=== PATIENT | female | born 1930 | race Caucasian/White ===

== ENCOUNTER 2022-01-16 16:00 | Inpatient (IN) | payer OTHER ==
--- NOTE | 2022-01-16 16:33 | RAD REPORT ---
EXAM DESCRIPTION: CT - Ct Stroke Brain Wo Cont - 01/16/2022 4:12 pm CLINICAL HISTORY: Weakness COMPARISON: none TECHNIQUE: Computed axial tomography of the head was obtained. All CT scans are performed using dose optimization technique as appropriate and may include automated exposure control or mA/KV adjustment according to patient size. FINDINGS: An intracranial bleed is not seen . The ventricles are normal in caliber. No extra-axial fluid collection is noted. Mild low-density within periventricular, deep and subcortical white matter likely ischemic changes se condary to small vessel disease Fluid within the sinuses/ mastoids is not seen. IMPRESSION: No acute intracranial abnormality is seen. If patient's symptoms persist MRI of the bra in would be recommended. Jose G Koehler of the emergency room was notified at 4:06 p.m. January 16, 2022
[2022-01-16 16:36] LABS: Absolute Lymphocytes (CBC) 0.7 K/uL (0.7-4.9); Hematocrit 29.8 % (36.0-45.0); Lymphocytes % 11.1 % (15.3-44.8); MCV 108.1 fL (80-100); RBC Red Blood Cell Count 2.75 M/uL (3.86-4.86)
[2022-01-16 16:42] LABS: Protime INR 1.13
[2022-01-16 17:00] LABS: Magnesium 2.2 mg/dL (1.8-2.4); Troponin High Sensitivity 41.9 pg/mL (<58.9)
[2022-01-16 17:10] LABS: Blood Morphology Comment NOTED (NOT SEEN); Macrocytosis 1+; Platelet Estimate DECR; Polychromasia 1+; White Blood Cell Scan OK (OK)
--- NOTE | 2022-01-16 17:12 | RAD REPORT ---
EXAM DESCRIPTION: Slime Angio01/16/2022 4:51 pm CLINICAL HISTORY: Acute CVA COMPARISON: None TECHNIQUE: 50 cc Isovue 370 was administered intravenously. 3D MIP reconstruction performed All CT scans are performed using dose optimization technique as appropriate and may include automated exposure control or mA/KV adjustment according to patient size. FINDINGS: Calcified plaque right carotid bulb results in an approximately 55% stenosis. Mild calcified plaque common carotid, internal carotid and external carotid arteries. Vertebral arteries appear unremarkable. No dissection seen. IMPRESSION: Moderate calcified plaque right carotid bulb NASCET criteria used. Mild 0-49% stenosis Moderate 50-69% stenosis Severe 70-99% stenosis
--- NOTE | 2022-01-16 17:16 | RAD REPORT ---
EXAM DESCRIPTION: CTHead angio01/16/2022 4:50 pm CLINICAL HISTORY: Acute CVA COMPARISON: None TECHNIQUE: CT angiogram of the head was obtained. 3D MIPS reconstruction performed. All CT scans are performed using dose optimization technique as appropriate and may include automated exposure control or mA/KV adjustment according to patient size. FINDINGS: Mild calcified plaque distal internal carotid arteries bilaterally The basilar,, anterior cerebral, middle cerebral and posterior cerebral arteries do not demonstrate a significant abnormality An aneurysm is not seen A significant stenosis is not noted. IMPRESSION: No acute abnormality is displayed
--- NOTE | 2022-01-16 17:19 | RAD REPORT ---
EXAM DESCRIPTION: Kenn Single View01/16/2022 5:04 pm CLINICAL HISTORY: CVA COMPARISON: none FINDINGS: Mild bilateral interstitial lung opacities. The heart is mildly enlarged IMPRESSION: Mild bilateral interstitial lung opacities may represent mild interstitial pulmonary ollie ma or pneumonitis
--- NOTE | 2022-01-16 17:52 | ER ---
Nurse's Notes [facility] Name: Genesis Pedraza Age: 89 yrs Sex: Female : 1930 Arrival Date: 01/16/2022 Time: 16:04 Bed 19 Private MD: Diagnosis: Ischemic CVA;Weakness;Left sided weakness;Slurred speech Presentation: 01/16 15:54 Chief complaint: EMS states: L FACE DROOP, LEFT EXTREMITY WEAKNESS, START 1515. bp Coronavirus screen: At this time, the client does not indicate any symptoms associated with coronavirus-19. Ebola Screen: No symptoms or risks identified at this time. An acute neurological deficit is present. The charge nurse has been notified. The patient has been moved to a treatment area. The patients blood glucose was checked before arriving to the hospital and was found to be normal. Initial Sepsis Screen: Does the patient meet any 2 criteria? No. Patient's initial sepsis screen is negative. Does the patient have a suspected source of infection? No. Patient's initial sepsis screen is negative. Risk Assessment: Do you want to hurt yourself or someone else? Patient reports no desire to harm self or others. Onset of symptoms was January 16, 2022 at 15:15. 15:54 Method Of Arrival: EMS: [facility] bp 15:54 Acuity: ABDIFATAH 1 bp Triage Assessment: 15:54 The onset of the patients symptoms was January 16, 2022 at 15:15. General: Appears bp distressed, obese, Behavior is agitated, anxious. Pain: Denies pain. EENT: No deficits noted. Neuro: Reports weakness in left arm and left leg Denies. Cardiovascular: Rhythm is atrial fibrillation. Respiratory: No deficits noted. GI: No signs and/or symptoms were reported involving the gastrointestinal system. : No signs and/or symptoms were reported regarding the genitourinary system. Derm: Bruising that is on lateral aspect of right thigh and right quadriceps and left leg and left arm. Musculoskeletal: Reports weakness in left arm and left leg. 15:54 Injury Description: Laceration sustained to left knee is full thickness, 2.6 to 7.5 cm bp long, bleeding moderately, was sustained UNKNOWN moderate bleeding noted at this time. Stroke Activation: Symptom onset < 3 hours Physician: Stroke Attending; Name: ; Notified At: ; Arrived At: Physician: Chief Stroke Resident; Name: ; Notified At: ; Arrived At: Physician: Stroke Resident; Name: ; Notified At: ; Arrived At: Physician: ED Attending; Name: ; Notified At: ; Arrived At: Physician: ED Resident; Name: ; Notified At: ; Arrived At: Historical: - Allergies: 15:54 No Known Allergies; bp - Immunization history:: Adult Immunizations unknown. - Social history:: Smoking status: unknown. Screenin:54 Abuse screen: Denies threats or abuse. Denies injuries from another. Nutritional bp screening: No deficits noted. Tuberculosis screening: No symptoms or risk factors identified. Fall Risk Fall in past 12 months (25 points). Secondary diagnosis (15 points) impaired mobility, IV access (20 points). Ambulatory Aid- Crutches/Cane/Walker (15 pts). Gait- Weak (10 pts.). Mental Status- Overestimates/Forgets Limitations (15 pts.). Total Hinkle Fall Scale indicates High Risk Score (45 or more points). Fall prevention measures have been instituted. Side Rails Up X 2 Placed Close to Nursing Station Frequent Obs/Assessments Occuring Family Present and informed to notify staff if the need to leave the bedside As available patient and family educated on Fall Prevention Program and Strategies. Assessment: 15:54 VAN Scoring: Arm Drift: Patients demonstrates NO arm weakness. Patient is VAN Negative. bp The patient has not been NPO before screening. The patient is alert, and able to follow commands. The patient exhibits slurred or garbled speech. Provider notified of the indication for Speech Therapy consult. The patient is exhibiting difficulty speaking. The patient does not exhibit difficulty understanding words. The patient is able to swallow own secretions with no drooling or need for suction. NOT DONE NOT DONE The patient failed the bedside swallow screening. The patient will be kept NPO until cleared by Speech Therapy or Physician. Provider notified of bedside swallow screening results: Artie Wong DO. TNKase (Tenecteplase) Screening: Contraindications: Active peripheral bleeding/history of intracranial bleeding: Yes. 17:00 Reassessment: PT RETURNED FROM RADIOLOGY. bp 17:22 Reassessment: PER DR LOPEZ, PT CURRENT CO-MORBIDITIES AND WOUNDS MAKE HER A POOR bp CANDIDATE FOR TNKASE. SITUATION EXPLAINED TO FAMILY. PT CHOOSING TO DECLINE TNKASE ADMINISTRATION 2/2 ELEVATED RISK OF POOR OUTCOMES. 17:33 Reassessment: ATTENDING AT B/S. RISKS VS REWARD OR TNKASE EXPLAINED TO PT AND FAMILY bp WITH NEURO'S RECOMMENDATION. AFTER DISCUSSION, PT AND FAMILY OPT TO NOT USE THROMBOLYTICS DUE TO THE INCREASED RISK. 19:26 Reassessment: [id number] Enrique, ulises. vc1 Vital Signs: 15:54 BP 96 / 60; Pulse 110; Resp 20; Temp 98; Pulse Ox 95% on R/A; bp 17:00 BP 83 / 38; Pulse 60; Resp 11; Pulse Ox 100% ; bp 17:15 BP 97 / 52; Pulse 48; Resp 14; Pulse Ox 100% ; bp 22:00 Weight 72.57 kg; Height 5 ft. 3 in. (160.02 cm); vc1 22:00 Body Mass Index 28.34 (72.57 kg, 160.02 cm) vc1 NIH Stroke Scale Scores: 15:54 NIHSS Score: 13 ms3 17:27 NIHSS Score: 13 bp ED Course: 15:45 Inserted saline lock: 22 gauge in left forearm, using aseptic technique. Blood bp collected. 15:54 Arm band placed on. EKG completed in triage. Results shown to MD. bp 16:04 Patient arrived in ED. hb 16:11 Artie Wong DO is Attending Physician. ms3 16:13 CT Stroke Brain w/o Contrast In Process Unspecified. EDMS 16:22 Robin Corrales, FATOUMATA is Primary Nurse. bp 16:27 Triage completed. bp 16:40 Antipyretics given from triage as ordered by an ER provider. bp 16:52 CT Head Angio In Process Unspecified. EDMS 16:53 CT Neck Angio In Process Unspecified. EDMS 17:06 Stroke CXR 1 View In Process Unspecified. EDMS 17:51 Martin Woodard MD is Hospitalizing Provider. ms3 19:00 Patient has correct armband on for positive identification. Bed in low position. Call vc1 light in reach. Client placed on continuous cardiac and pulse oximetry monitoring. NIBP monitoring applied. 20:00 No provider procedures requiring assistance completed. Patient admitted, IV remains in vc1 place. 01/17 00:35 Primary Nurse role handed off by Robin Corrales, FATOUMATA vc1 00:35 Calcote, Mary, RN is Primary Nurse. vc1 16:43 Primary Nurse role handed off by Mary Friend RN vg1 16:43 Lala Fitzgerald, RN is Primary Nurse. vg1 Administered Medications: No medications were administered Medication: 01/16 17:01 VIS not applicable for this client. bp Point of Care Testing: Blood Glucose: 22:00 Blood Glucose: 128 mg/dL; vc1 Ranges: Outcome: 17:52 Decision to Hospitalize by Provider. ms3 22:00 Admitted to ER Hold. Please see [facility] for further documentation. vc1 22:00 Condition: good 22:00 Instructed on the need for admit. 01/17 22:15 Patient left the ED. bb NIH Stroke Scale - NIH Stroke Score Date: 01/16/2022 Time: 15:54 Total Score = 13 1a. Level of Consciousness (LOC) - 0(Alert) 1b. Level of Consciousness (LOC) (Month \T\ Age) - 0(Both) 1c. LOC Commands (Open \T\ Closes Eyes/Suede Brusher) - 0(Both) 2. Best Gaze (Lateral Gaze Paresis) - 0(Normal) 3. Visual Field Loss - 2(Complete hemianopia) 4. Facial Palsy - 2(Partial paralysis) 5a. Left Arm: Motor (10-second hold) - 2(Drift, some effort against gravity) 5b. Right Arm: Motor (10-second hold) - 0(No drift) 6a. Left Leg: Motor (5-second hold - always test supine) - 2(Drift, some effort against gravity) 6b. Right Leg: Motor (5-second hold - always test supine) - 0(No drift) 7. Limb Ataxia (finger/nose \T\ heel/newton - test with eyes open) - 1(Present in one limb) 8. Sensory Loss (pinprick arms/legs/face) - 2(Severe to total loss) 9. Best Language: Aphasia (description/naming/reading) - 0(No aphasia) 10. Dysarthria (speech clarity - read or repeat words) - 1(Mild to Moderate) 11. Extinction and Inattention (visual/tactile/auditory/spatial/personal) - 1(Present) Initials: ms3 NIH Stroke Scale - NIH Stroke Score Date: 01/16/2022 Time: 17:27 Total Score = 13 1a. Level of Consciousness (LOC) - 0(Alert) 1b. Level of Consciousness (LOC) (Month \T\ Age) - 0(Both) 1c. LOC Commands (Open \T\ Closes Eyes/Suede Brusher) - 0(Both) 2. Best Gaze (Lateral Gaze Paresis) - 0(Normal) 3. Visual Field Loss - 2(Complete hemianopia) 4. Facial Palsy - 2(Partial paralysis) 5a. Left Arm: Motor (10-second hold) - 0(No drift) 5b. Right Arm: Motor (10-second hold) - 2(Drift, some effort against gravity) 6a. Left Leg: Motor (5-second hold - always test supine) - 0(No drift) 6b. Right Leg: Motor (5-second hold - always test supine) - 2(Drift, some effort against gravity) 7. Limb Ataxia (finger/nose \T\ heel/newton - test with eyes open) - 1(Present in one limb) 8. Sensory Loss (pinprick arms/legs/face) - 1(Mild to moderate loss) 9. Best Language: Aphasia (description/naming/reading) - 1(Mild to moderate aphasia) 10. Dysarthria (speech clarity - read or repeat words) - 1(Mild to Moderate) 11. Extinction and Inattention (visual/tactile/auditory/spatial/personal) - 1(Present) Initials: bp Signatures: Dispatcher [employer] EDMS Amarilis Rivas RN Miladys Bazzi, RN RN Robin Dos Santos RN Lala Sanchez RN RN [email or web address] Artie Wong DO DO ms3 Mary Friend RN RN vc1 Corrections: (The following items were deleted from the chart) 01/16 16:30 15:50 Allergies: Tetanus Vaccines \T\ Toxoid; bp bp 16:31 15:50 Allergies: No Known Allergies; bp bp 17:10 15:54 Derm: No deficits noted. bp bp 17:11 15:54 The patient has not been NPO before screening. The patient is alert, and bp able to follow commands. The patient exhibits slurred or garbled speech. Provider notified of the indication for Speech Therapy consult. The patient failed the bedside swallow screening. The patient will be kept NPO until cleared by Speech Therapy or Physician. Provider notified of bedside swallow screening results: Artie Wong DO bp 17:13 15:54 Blood Glucose: Blood Glucose Qyckmql=122 mg/dL. bp bp 17:13 15:54 Blood Glucose: Blood Glucose Uphbykg=949 mg/dL. bp bp 17:13 15:54 Blood Glucose: Blood Glucose Kdfosna=891 mg/dL. bp bp 17:13 15:54 Blood Glucose: Blood Glucose Saqsuwa=038 mg/dL. bp bp 17:13 15:54 Blood Glucose: Blood Glucose Vsolchs=364 mg/dL. bp bp 17:13 15:54 Blood Glucose: Blood Glucose Csnvrzj=680 mg/dL. bp bp 17:13 15:54 Blood Glucose: Blood Glucose Xeisbqr=118 mg/dL. bp bp 17:13 15:54 Blood Glucose: Blood Glucose Xoieltv=574 mg/dL. bp bp 17:34 15:54 NIHSS Score: 11 bp bp
--- NOTE | 2022-01-16 17:52 | EDPHYS ---
Physician Documentation [facility] Name: Genesis Pedraza Age: 89 yrs Sex: Female : 1930 Arrival Date: 01/16/2022 Time: 16:04 Bed 19 Private MD: ED Physician Artie Wong HPI: 01/16 16:23 This 89 yrs old Female presents to ER via Unassigned with complaints of S/S of Possible ms3 Stroke. 16:23 The patient's problem is reported as a facial droop, on left, dysphasia, slurred ms3 speech, weakness, in the left upper extremity, in the left lower extremity, in the left side of face. Onset: The symptoms/episode began/occurred acutely, at 3:15 PM. Duration: The episode is continuous. Context: the episode(s) was witnessed, by family, son, occurred at home, Possible contributing factors include: Stopped Eliquis on Monday after a fall. The symptoms are alleviated by nothing. The symptoms are aggravated by nothing. Associated signs and symptoms: The patient has no apparent associated signs or symptoms. Severity of symptoms: At their worst the symptoms were severe in the emergency department the symptoms are unchanged. Historical: - Allergies: 15:54 No Known Allergies; bp - Immunization history:: Adult Immunizations unknown. - Social history:: Smoking status: unknown. ROS: 16:23 Constitutional: Negative for fever, and chills. Eyes: Negative for injury, pain, ms3 redness, and discharge, Cardiovascular: Negative for chest pain, and palpitations. Respiratory: Negative for shortness of breath, cough, wheezing, and pleuritic chest pain, Abdomen/GI: Negative for abdominal pain, nausea, vomiting, diarrhea, and constipation, MS/Extremity: Negative for injury and deformity, Skin: Negative for injury, rash, and discoloration. 16:23 Neuro: Positive for numbness, speech changes, weakness. 16:23 All other systems are negative. Exam: 16:23 Radiologist reports: negative ms3 16:23 Constitutional: This is a well developed, well nourished patient who is awake, alert, and in no acute distress. Head/Face: Normocephalic, atraumatic. Neck: Trachea midline, no cervical lymphadenopathy. Supple, full range of motion without nuchal rigidity, or vertebral point tenderness. No Meningismus. Chest/axilla: Normal chest wall appearance and motion. Nontender with no deformity. Cardiovascular: Regular rate and rhythm with a normal S1 and S2. No gallops, murmurs, or rubs. Normal PMI, no JVD. No pulse deficits. Respiratory: Lungs have equal breath sounds bilaterally, clear to auscultation and percussion. No rales, rhonchi or wheezes noted. No increased work of breathing, no retractions or nasal flaring. Abdomen/GI: Soft, non-tender, with normal bowel sounds. No distension or tympany. No guarding or rebound. No evidence of tenderness throughout. 16:23 ECG was reviewed by the Attending Physician. 16:23 Skin: Ecchymosis of left lower leg, ecchymosis of right lower leg, laceration with sutures left knee with bleeding- oozing, contusion to left shoulder. Vital Signs: 15:54 BP 96 / 60; Pulse 110; Resp 20; Temp 98; Pulse Ox 95% on R/A; bp 17:00 BP 83 / 38; Pulse 60; Resp 11; Pulse Ox 100% ; bp 17:15 BP 97 / 52; Pulse 48; Resp 14; Pulse Ox 100% ; bp 22:00 Weight 72.57 kg; Height 5 ft. 3 in. (160.02 cm); vc1 22:00 Body Mass Index 28.34 (72.57 kg, 160.02 cm) vc1 NIH Stroke Scale Scores: 15:54 NIHSS Score: 13 ms3 17:27 NIHSS Score: 13 bp MDM: 16:11 Patient medically screened. ms3 16:21 ED course: Discussed case with Dr Cox. Patient with NIH of 13. Patient is high ms3 risks for TNK complications 2/2 recent fall, laceration to left knee, ecchymosis of left shoulder, bilateral lower extremity ecchymosis.. 16:23 ED course: Discussed TNK risks vs benefits with patient, her son, and daughter in law. ms3 Decision made to hold TNK at this time 2/2 patient being high risk for bleeding complications 2/2 recent falls/ lacerations. 17:52 ED course: Discussed TNK risks and benefits after CTA head and neck with patient, her ms3 son, and daughter in law and patient does not wish to have TNK. 17:57 Data reviewed: vital signs, nurses notes, lab test result(s), EKG, radiologic studies, ms3 and as a result, I will admit patient. Data interpreted: gambling monitor: rate is 67 beats/min, rhythm is normal sinus rhythm, regular, with no ectopy. Counseling: I had a detailed discussion with the patient and/or guardian regarding: the historical points, exam findings, and any diagnostic results supporting the discharge/admit diagnosis, lab results, radiology results, the need for further work-up and treatment in the hospital. 01/16 16:18 Order name: Basic Metabolic Panel; Complete Time: 17:04 ms3 01/16 16:18 Order name: CBC with Diff; Complete Time: 17:15 ms3 01/16 16:18 Order name: High Sensitivity Troponin; Complete Time: 17:04 ms3 01/16 16:18 Order name: Magnesium; Complete Time: 17:04 nc3 01/16 16:18 Order name: Protime (+inr); Complete Time: 17:04 nc3 01/16 16:18 Order name: Ptt, Activated; Complete Time: 17:04 nc3 01/16 16:31 Order name: Glucose, Ancillary Testing; Complete Time: 17:04 EDMS 01/16 16:44 Order name: CBC Smear Scan; Complete Time: 17:15 EDMS 01/16 21:47 Order name: Glucose, Ancillary Testing; Complete Time: 21:54 EDMS 01/17 02:49 Order name: CBC with Automated Diff; Complete Time: 04:13 EDMS 01/17 03:31 Order name: Hemoglobin A1c; Complete Time: 04:13 MS 01/17 03:40 Order name: Sedimentation Rate, Westergren; Complete Time: 04:13 EDMS 01/17 03:43 Order name: Comprehensive Metabolic Panel; Complete Time: 04:13 MS 01/17 03:43 Order name: Phosphorus; Complete Time: 04:13 MS 01/16 16:06 Order name: CT Stroke Brain w/o Contrast; Complete Time: 17:04 [facility] 01/16 16:18 Order name: Stroke CXR 1 View; Complete Time: 17:39 ms3 01/16 16:20 Order name: CT Head Angio; Complete Time: 17:17 nc3 01/16 16:20 Order name: CT Neck Angio; Complete Time: 17:15 ms3 01/17 03:43 Order name: Lipid Profile; Complete Time: 04:13 EDMS 01/17 03:43 Order name: T4,Total; Complete Time: 04:13 EDMS 01/17 03:43 Order name: Magnesium; Complete Time: 04:13 EDMS 01/17 03:43 Order name: Thyroid Stimulating Hormone; Complete Time: 04:13 EDMS 01/17 03:43 Order name: Transferrin Sat/Iron Binding; Complete Time: 04:13 EDMS 01/17 03:43 Order name: Folic Acid, (Folate); Complete Time: 04:13 EDMS 01/17 03:43 Order name: Vitamin B12 Level; Complete Time: 04:13 EDMS 01/17 12:33 Order name: MRI; Complete Time: 17:59 EDMS 01/17 12:36 Order name: MRI; Complete Time: 17:59 EDMS 01/17 12:46 Order name: MRI; Complete Time: 17:59 EDMS 01/17 19:33 Order name: SARS RAPID 2 01/17 20:10 Order name: SARS-COV-2 Antigen Rapid EDNC 01/16 16:18 Order name: EKG; Complete Time: 16:19 ms3 01/16 16:18 Order name: Accucheck; Complete Time: 16:30 ms3 01/16 16:18 Order name: Cardiac monitoring; Complete Time: 16:30 ms3 01/16 16:18 Order name: EKG - Nurse/Tech; Complete Time: 16:30 ms3 01/16 16:18 Order name: IV Saline Lock; Complete Time: 16:30 ms3 01/16 16:18 Order name: Labs collected and sent; Complete Time: 16:30 ms3 01/16 16:18 Order name: NPO; Complete Time: 16:30 ms3 01/16 16:18 Order name: O2 Per Protocol; Complete Time: 16:30 ms3 01/16 16:18 Order name: O2 Sat Monitoring; Complete Time: 16:30 ms3 01/16 16:18 Order name: Stroke Swallow Screen; Complete Time: 16:30 ms3 EC:23 Rate is 75 beats/min. Rhythm is irregularly irregular. Left axis deviation noted. QRS ms3 interval is prolonged. Clinical impression: Atrial Fibrillation. Interpreted by me. Reviewed by me. Administered Medications: No medications were administered Point of Care Testing: Blood Glucose: 22:00 Blood Glucose: 128 mg/dL; vc1 Ranges: Critical Glucose Levels:Adult <50 mg/dl or >400 mg/dl <40 mg/dl or >180 mg/dl Disposition Summary: 01/16/22 17:52 Hospitalization Ordered Hospitalization Status: Inpatient Admission ms3 Provider: Martin Woodard ms3 Condition: Stable ms3 Problem: new ms3 Symptoms: are unchanged ms3 Bed/Room Type: Standard ms3 Location: Telemetry/MedSurg (Inpatient)(01/17/22 20:58) cg Room Assignment: 411(01/17/22 20:58) cg Diagnosis - Ischemic CVA ms3 - Weakness ms3 - Left sided weakness ms3 - Slurred speech ms3 Forms: - Medication Reconciliation Form ms3 - SBAR form ms3 Critical care time excluding procedures: 17:58 Critical care time: Bedside Care: 45 minutes, Consultation: 15 minutes, Family ms3 Intervention: 10 minutes. Total time: 70 minutes NIH Stroke Scale - NIH Stroke Score Date: 01/16/2022 Time: 15:54 Total Score = 13 1a. Level of Consciousness (LOC) - 0(Alert) 1b. Level of Consciousness (LOC) (Month \T\ Age) - 0(Both) 1c. LOC Commands (Open \T\ Closes Eyes/Electrical Sign Wirer) - 0(Both) 2. Best Gaze (Lateral Gaze Paresis) - 0(Normal) 3. Visual Field Loss - 2(Complete hemianopia) 4. Facial Palsy - 2(Partial paralysis) 5a. Left Arm: Motor (10-second hold) - 2(Drift, some effort against gravity) 5b. Right Arm: Motor (10-second hold) - 0(No drift) 6a. Left Leg: Motor (5-second hold - always test supine) - 2(Drift, some effort against gravity) 6b. Right Leg: Motor (5-second hold - always test supine) - 0(No drift) 7. Limb Ataxia (finger/nose \T\ heel/newton - test with eyes open) - 1(Present in one limb) 8. Sensory Loss (pinprick arms/legs/face) - 2(Severe to total loss) 9. Best Language: Aphasia (description/naming/reading) - 0(No aphasia) 10. Dysarthria (speech clarity - read or repeat words) - 1(Mild to Moderate) 11. Extinction and Inattention (visual/tactile/auditory/spatial/personal) - 1(Present) Initials: ms3 NIH Stroke Scale - NIH Stroke Score Date: 01/16/2022 Time: 17:27 Total Score = 13 1a. Level of Consciousness (LOC) - 0(Alert) 1b. Level of Consciousness (LOC) (Month \T\ Age) - 0(Both) 1c. LOC Commands (Open \T\ Closes Eyes/Electrical Sign Wirer) - 0(Both) 2. Best Gaze (Lateral Gaze Paresis) - 0(Normal) 3. Visual Field Loss - 2(Complete hemianopia) 4. Facial Palsy - 2(Partial paralysis) 5a. Left Arm: Motor (10-second hold) - 0(No drift) 5b. Right Arm: Motor (10-second hold) - 2(Drift, some effort against gravity) 6a. Left Leg: Motor (5-second hold - always test supine) - 0(No drift) 6b. Right Leg: Motor (5-second hold - always test supine) - 2(Drift, some effort against gravity) 7. Limb Ataxia (finger/nose \T\ heel/newton - test with eyes open) - 1(Present in one limb) 8. Sensory Loss (pinprick arms/legs/face) - 1(Mild to moderate loss) 9. Best Language: Aphasia (description/naming/reading) - 1(Mild to moderate aphasia) 10. Dysarthria (speech clarity - read or repeat words) - 1(Mild to Moderate) 11. Extinction and Inattention (visual/tactile/auditory/spatial/personal) - 1(Present) Initials: bp Signatures: Dispatcher [employer] EDMS Jose G Koehler PA PA jmm Attema, Lee, WHITING MACHINE OPERATOR-C WHITING MACHINE OPERATOR-Cla1 Shelley Fitzgerald, RN RN Robin Padron RN RN Artie Pate DO DO ms3 Tammi Perez PA-C PA-C sb4 Corrections: (The following items were deleted from the chart) 16:30 15:50 Allergies: Tetanus Vaccines \T\ Toxoid; bp bp 16:31 15:50 Allergies: No Known Allergies; bp bp 18:49 17:52 Telemetry/MedSurg (Inpatient) ms3 cg 18:49 17:52 ms3 cg 01/17 20:58 01/16 18:49 [facility] cg cg 01/17 20:58 01/16 18:49 [facility]- cg cg
[2022-01-16] MEDS ORDERED: ACETAMINOPHEN 500 MG TAB PO PRN (20:17)
[2022-01-16] MEDS ORDERED: ALBUTEROL 2.5 MG/3 ML NEB SOL NEB PRN (20:17)
[2022-01-16] MEDS ORDERED: ONDANSETRON 4 MG/2 ML VIAL IV PRN (20:17)
[2022-01-16] MEDS ORDERED: IPRATROPIUM BROM 0.5MG/2.5ML NEB SCH (20:17)
--- NOTE | 2022-01-16 20:31 | P.HP ---
Certification for Inpatient Patient admitted to: Inpatient With expected LOS: >2 Midnights Patient will require the following post-hospital care: None Practitioner: I am a practitioner with admitting privileges, knowledge of patient current condition, hospital course, and medical plan of care. 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 Her initial NIH score was 13. Head CT negative for acute bleed. CT head angio negative. CT neck angio showed moderate calcified plaque in the right carotid bulb. Patient takes Eliquis for her A. fib but after having a fall and large amount of ecchymosis/bleeding on her leg 2 days ago, she stopped the Eliquis yesterday. Labs are significant for BUN 38, creatinine 1.48, and hemoglobin 9.6. Chest x-ray showed mild bilateral interstitial lung opacities that may represent interstitial pulmonary edema or pneumonitis. She was in the window for TNKase, however given her recent falls/inurjuries/bleeding, the decision was made to hold off after discussion with Dr. Cox and family. Patient's symptoms have improved since, most recent NIH is 6. She is admitted for further management. Allergies No Known Allergies Allergy (Unverified 01/16/22 20:11) Home medications list reviewed: Yes Home Medications: Allopurinol 1 tab PO DAILY 01/16/22 Apixaban [Eliquis] 2.5 mg PO BID 01/16/22 Furosemide [Lasix] 40 mg PO DAILY 01/16/22 Levothyroxine [Synthroid] 100 mcg PO [id number] 01/16/22 Montelukast Sodium [Singulair] 10 mg PO DAILY 01/16/22 Pramipexole Di-HCl [Pramipexole Dihydrochloride] 0.5 mg PO BEDTIME 01/16/22 Simvastatin 40 mg PO BEDTIME 01/16/22 Spironolactone [Aldactone] 25 mg PO DAILY 01/16/22 Tizanidine HCl [Zanaflex] 2 mg PO PRN 01/16/22 - Past Medical/Surgical History Diabetic: Yes -: Atrial Fibrillation -: Chronic kidney disease -: Congestive heart failure -: Anemia -: Cholecystectomy Psychosocial/ Personal History: Patient lives in [facility]. - Family History Mother -: Heart disease, Cancer - Social History Smoking Status: Never smoker Alcohol use: No CD- Drugs: No Caffeine use: Yes Place of Residence: Home Review of Systems Musculoskeletal: Leg Pain Integumentary: Bruising Neurological: Weakness, Change in Speech Physical Examination - Vital Signs Temperature: 98 F Blood Pressure: 97/52 Pulse: 48 Respirations: 14 Pulse Ox (%): 100 (room air) - Physical Exam General: Alert, In no apparent distress, Oriented x3 HEENT: Atraumatic, PERRLA, EOMI, Sclerae nonicteric Neck: Supple, 2+ carotid pulse no bruit, No LAD, Without JVD or thyroid abnormality Respiratory: Clear to auscultation bilaterally, Normal air movement Cardiovascular: Regular rate/rhythm, Normal S1 S2 Gastrointestinal: Normal bowel sounds, No tenderness Musculoskeletal: No tenderness Neurological: Normal affect, Abnormal speech (mildly slurred speech), Abnormal strength (decreased left arm, left hand), Abnormal sensation (decreased left hand and left foot) - Studies Laboratory Data (last 24 hrs) 01/16/22 16:26: PT 12.4, INR 1.13, APTT 23.9 L 01/16/22 16:26: WBC 6.00, Hgb 9.6 L, Hct 29.8 L, Plt Count 124 L 01/16/22 16:26: Sodium 137, Potassium 4.0, BUN 38 H, Creatinine 1.48 H, Glucose 135 H, Magnesium 2.2 Assessment and Plan - Problems (Diagnosis) (1) Acute CVA (cerebrovascular accident) Current Visit: Yes Status: Acute (2) Atrial fibrillation Current Visit: Yes Status: Acute Qualifiers: Atrial fibrillation type: paroxysmal Qualified Code(s): I48.0 - Paroxysmal atrial fibrillation (3) Congestive heart failure Current Visit: Yes Status: Chronic Qualifiers: Heart failure type: diastolic Heart failure chronicity: chronic Qualified Code(s): I50.32 - Chronic diastolic (congestive) heart failure (4) Hypothyroidism Current Visit: Yes Status: Chronic Qualifiers: Hypothyroidism type: acquired Qualified Code(s): E03.9 - Hypothyroidism, unspecified (5) Anemia Current Visit: Yes Status: Chronic Qualifiers: Anemia type: due to chronic kidney disease Chronic kidney disease stage: stage 3 (moderate) Chronic kidney disease stage 3 subtype: stage 3b (GFR 30- 44) Qualified Code(s): N18.32 - Chronic kidney disease, stage 3b; D63.1 - Anemia in chronic kidney disease - Plan Patient is from out of town, so there are no records to compare prior labs/imaging to. She does have a known history of CHF and states she goes to cardiac rehab once a week. NIH stroke scale qshift. Neuro assessments [id number]. Neurology consult. Additional labs pending- B12, folate, TSH, lipid panel, ESR, iron studies. Aspirin, statin, and folic acid daily. MRI stroke protocol and echo ordered for the morning. Blood sugar has been slightly elevated. Patient denies history of type 2 diabetes. Will check A1c. Patient passed bedside swallow. Resume heart healthy diet. Wound healing consulted given patient's recent knee laceration and bilateral leg ecchymosis. Physical therapy, speech therapy, and case management consult. Monitor and replete electrolytes per protocol. Reconcile and continue home medications SCDs for VTE prophylaxis. Full code. Discharge Plan: Home Plan to discharge in: Greater than 2 days - Advance Directives Does patient have a Living Will: No Does patient have a Durable POA for Healthcare: No - Code Status/Comfort Care Code Status Assessed: Yes Code Status: Full Code Critical Care: No Time Spent Managing Pts Care (In Minutes): 50
[2022-01-16] MEDS ORDERED: ATORVASTATIN 20 MG TAB PO SCH (21:00)
[2022-01-16] MEDS ORDERED: ATORVASTATIN 20 MG TAB ONE (22:14)
[2022-01-17] MEDS ORDERED: INSULIN -REGULAR HUMAN 50 UNIT/0.5 ML ML SQ SCH
[2022-01-17 02:45] LABS: Absolute Lymphocytes (CBC) 0.8 K/uL (0.7-4.9); Hematocrit 26.4 % (36.0-45.0); Lymphocytes % 15.3 % (15.3-44.8); MPV 7.1 fL (7.6-11.3); RBC Red Blood Cell Count 2.45 M/uL (3.86-4.86)
[2022-01-17 02:49] LABS: MCV 107.8 fL (80-100)
[2022-01-17 03:42] LABS: BUN Blood Urea Nitrogen 37 mg/dL (7-18); Bicarbonate 31 mmol/L (21-32); Glomerular Filtration Rate 40 ml/min (=/>90); Glucose Level 105 mg/dL (74-106); Potassium 3.5 mmol/L (3.5-5.1); Sodium Level 139 mmol/L (136-145)
[2022-01-17 03:43] LABS: ALT/SGPT 16 U/L (12-78); AST/SGOT 18 U/L (15-37); Albumin 3.1 g/dL (3.4-5.0); Alkaline Phosphatase 47 U/L (45-117); Bilirubin Total 1.3 mg/dL (0.2-1.0); Folic Acid, (Folate) > 20.0 ng/mL (3.1-17.5); HDL Cholesterol 59 mg/dL (40-60); LDL Cholesterol, Calculated 19 mg/dL (<130); Magnesium 2.3 mg/dL (1.8-2.4); Phosphorus 3.7 mg/dL (2.5-4.9); Protein, Total 6.4 g/dL (6.4-8.2); T4,Total 8.2 ug/dL (4.8-13.9); Transferrin 264 mg/dL (200-360)
[2022-01-17] MEDS ORDERED: POTASSIUM 25 MEQ EFFERV TAB PO ONE (04:30)
[2022-01-17] MEDS ORDERED: LEVOTHYROXINE SOD 0.1 MG TAB ONE (05:12)
[2022-01-17] MEDS: LEVOTHYROXINE SOD 0.1 MG TAB PO SCH (05:32)
[2022-01-17] MEDS ORDERED: FUROSEMIDE 40 MG TABLET ONE (07:47)
[2022-01-17] MEDS ORDERED: ASPIRIN 81 MG CHEWABLE TABLET ONE (07:47)
[2022-01-17] MEDS ORDERED: SPIRONOLACTONE 25 MG TABLET ONE (08:28)
[2022-01-17] MEDS: SPIRONOLACTONE 25 MG TABLET PO SCH (08:44)
[2022-01-17] MEDS: FUROSEMIDE 40 MG TABLET PO SCH (08:44)
[2022-01-17] MEDS: ASPIRIN EC 81 MG TAB PO SCH (08:44)
[2022-01-17] MEDS ORDERED: FOLIC ACID 1 MG in NA CHLORIDE 0.9% 50 ML IV SCH (09:00)
--- NOTE | 2022-01-17 12:33 | RAD REPORT ---
EXAM DESCRIPTION: MRI - Brain W/Wo Cont - 01/17/2022 12:19 pm CLINICAL HISTORY: NIH 13 Headache, drowsiness, CVA symptomology COMPARISON: MRA Head Wo Cont dated 01/17/2022 TECHNIQUE: Multi-sequence, multiplanar MR imaging of the brain was performed with contrast. FINDINGS: No intracranial hemorrhage, hydrocephalus, or extra-axial fluid collection. 10 mm area of restricted diffusion is seen in the right insular cortex region. Additional area of res tricted diffusion seen right periventricular /centrum semiovale white matter measuring up to 27 x 21 mm. These areas also demonstrate reduced ADC mapping signal. The midline structures are normally formed. Mastoid air cells and paranasal sinuses are clear. Post-contrast images show no abnormal enhancement to suggest tumor or infection. IMPRESSION: Acute, nonhemorrhagic CVA is seen in the right insular cortex as well as the right centr um semiovale white matter as detailed. No midline shift or pathologic post-contrast enhancement seen.
--- NOTE | 2022-01-17 12:36 | RAD REPORT ---
EXAM DESCRIPTION: MRI - MRA Head Wo Cont - 01/17/2022 12:18 pm CLINICAL HISTORY: NIH 13 CVA COMPARISON: Head angio dated 01/16/2022 FINDINGS: 3D noncontrast [id number] MR angiography of the [place] was performed. No aneurysm, flow-limiting stenosis or vascular malformation is seen. Forward flow seen in codominant vertebral arteries. The visualized dural venous sinuses appear patent. IMPRESSION: No significant flow abnormality of the [place] is identified.
--- NOTE | 2022-01-17 12:45 | RAD REPORT ---
EXAM DESCRIPTION: MRI - MRA Neck W/Wo Cont - 01/17/2022 12:19 pm CLINICAL HISTORY: NIH 13 COMPARISON: No comparisons FINDINGS: Contrast enhance 2D [id number] MR angiography of the neck vessels was performed. There is a left aortic arch present. Normal branching pattern of the great vessels is seen. There is a moderate stenosis of the right carotid bulb present estimated at 70-80% based on NASCET cr iteria appear. There is a moderate to significant stenosis of the left carotid bulb seen estimated at 80-90% based o n NASCET criteria. Antegrade flow seen in codominant vertebral arteries. IMPRESSION: Bilateral carotid stenosis is identified, slightly worse on the left, as detailed above.
--- NOTE | 2022-01-17 12:50 | EKG ---
Test Date: 2022-01-16 Test Time: 16:13:40 In Service Education Teacher: DAYAMI MEASUREMENT RESULTS: Intervals: Rate: 75 IA: QRSD: 138 QT: 454 QTc: 506 [place]: P: IA: QRS: -61 T: 69 INTERPRETIVE STATEMENTS: Atrial fibrillation Left axis deviation Nonspecific intraventricular block Cannot rule out Anteroseptal infarct, age undetermined Abnormal ECG No previous ECG available for comparison Electronically Signed On 01-17-22 12:48:57 [address] [employer] by Diego Arriaga
--- NOTE | 2022-01-17 17:52 | P.PN ---
Date of Service: 01/17/22 Subjective: extremity weakness worse this morning barely able to move LUE ROS: 10 point ROS as noted above, otherwise negative Physical exam GEN: Alert, oriented HEENT: Normal conjunctiva, sclera anicteric CV: Regular rate and rhythm, +edema of LLE, with large contusion Pulm: Nonlabored respirations, diminished at bases bilaterally ABD: Soft, nontender, nondistended MSK: L knee swollen Integumentary: large contusion of LLE, with sutures in place Neuro: slurered speech, minimal to no strength in LUE, minimal strength in LLE Problem List Acute CVA - right insular cortex, right centrum smeiovale white matter Atrial fibrillation, paroxysmal Congestive heart failure, diastolic, chronic Chronic hypothyroidism Anemia of chronic disease, CKD CKD 3b Patient was worsening of her extremity weakness this morning Continues with mild slurring of her speech, numbness/decreased sensation Allow for permissive hypertension following stroke Neurology consulted Continue aspirin, statin, folic acid MRI ordered for today Passed swallow study PT, ST, case management consulted Monitor electrolytes stroke workup pending Code: full Dispo: likely unsafe for home rehab consult Time Spent Managing Pts Care (In Minutes): 35
[2022-01-17 20:10] LABS: SARS-CoV-2 Antigen Rapid Res Negative (Negative)
[2022-01-17] MEDS ORDERED: SIMVASTATIN 40 MG PO SCH (21:00)
[2022-01-17] MEDS: ATORVASTATIN 20 MG TAB PO SCH (22:35)
--- NOTE | 2022-01-17 22:51 | CON ---
Reason For Consultation: Consultation called because of stroke. History Of Present Illness: Ms. Pedraza is an 89-year-old patient with hypertension; dyslipidemia; atr ial fibrillation, on Eliquis, who had a recent fall with a significant cut over the left knee and a v reji large hematoma involving the left lower extremity above and below the knee. She stopped her Eliq uis after the fall and yesterday developed sudden onset left face drooping with slurred speech, left upper more than lower extremity weakness. She came into [facility] around 40 minutes after the onset of symptoms. NIH Stroke Scale was 13 and she had a head CT scan that was negative. CT ang iogram of the head and neck also showed moderate calcified plaque in the right carotid bulb. The kitty arellano's family had entered into discussion with the emergency room physician, who informed me of the d iscussion as well and the family was told that the risks and benefits of taking TNKs given the large hematoma and recent laceration to the knee with multiple stitches, the family opted not to give TNKs. In addition, the patient did show significant improvement and stroke scale went from a 13 down to a 6. But again, the family did not want to engage with TNKs. The following day, which is today, her brain MRI identified an acute nonhemorrhagic stroke in the right insular cortex on the right centrum semiovale white matter, which likely accounts for the patient's left-sided symptoms with the arm invo lved and the legs. Past Medical History: Atrial fibrillation, chronic kidney disease, congestive heart failure, anemia, large left knee laceration with significant hematoma of the entire left leg. Past Surgical History: Cholecystectomy. Social History: The patient lives with her daughter in [place], but has 2 sons in [place]. Family History: Cancer and heart disease in mother. Allergies: NO KNOWN DRUG ALLERGIES. Medications: Allopurinol 100 mg daily, Eliquis 2.5 mg twice daily, Lasix 40 mg daily, Synthroid 100 mcg daily, Singulair 10 mg daily, pramipexole 0.5 mg at bedtime, simvastatin 40 mg at bedtime, Aldact one 25 mg daily, Zanaflex 2 mg as needed. Review of Systems: Noted significant left lower extremity pain and swelling, the laceration site above the knee. There is a large hematoma above and below the knee. There is significant weakness noted in left upper extr emity. Some slurred speech as well as mild difficulty with swallowing. Otherwise, no gastrointestin al or genitourinary issues. No psychiatric issues. Otherwise, unremarkable 10-point review of bob diaz. Physical Examination: Vital Signs: 135/65, pulse 84, respiratory rate 14, temperature 98.1, oxygen saturation 94% on room air. General: Ms. Pedraza is resting comfortably in bed. She is in no acute distress. She does have signi ficant swelling noted in the left lower extremity due to a large hematoma and a healing wound in the left above the knee with sutures in place. Heart: She is irregularly irregular. LUNGS: Good air movement. Extremities: Edema in the left lower extremity, mild on the right lower extremity. Neurological: She has some slurred speech. Mild dysarthria. Some difficulty in labial lingual and guttural sounds otherwise. Facial sensation decreased on the left compared to the right side and the tongue and palate are midline. Her motor examination in the lower extremities, she has dense paresi s noted in the left upper extremity. She can just shrug her shoulders with 0 wrist flexion, extensio n and biceps and triceps strength also 0 on the left and the left lower extremity, she is at 3/5 prox imally and distally on the right, she is 4+/5 proximally and distally. Sensory exam decreased to lig ht touch temperature in the left compared to the right side. Coordination was performed in left uppe r extremity, intact in left lower extremity and on the right side. She was evaluated by physical the rapist. Noted her strength exam showed a 1/5 in the left upper extremity and 2/5 left lower extremit y. Noted she would benefit from aggressive physical therapy, which patient does want to return to [facility] to continue. She does require maximum assistance to transfer from side to side. Left lower ex tremity requires maximum assistance for movement. Laboratory Studies: Complete blood count with differential shows anemia of 8.9, white blood cell cou nt normal at 5.2, ESR elevated at 46. INR 1.13. Chemistries: Initial creatinine 1.48, after hydrat ion today 1.28; glucose ranged from 105 to 151. Hemoglobin A1c 5.3. LDL cholesterol is reportedly 1 9, HDL 59. Folic acid greater than 20. TSH 1.47. Liver function studies show elevated total biliru bin of 1.3. Her iron level is low at 41% saturation, transferrin low at 11.1. Assessment: Ms. Pedraza is an 89-year-old patient with a right hemispheric stroke and dense left upper more than lower extremity weakness, dysarthria, dysphagia. She did not receive DBS. She had a mass dominick hematoma in the left lower extremity with recent fall and cut and she had the day before stopped Eliquis because of extreme bleeding and swelling in the left lower extremity. At this point, she wou ld benefit from aggressive physical therapy inpatient if possible given her multiple comorbid issues and hematoma with sutures. She is not likely to do well going home and would require at least skille d nursing and more likely acute inpatient rehabilitation given the high level of medical needs. She does have comorbid hypothyroidism, hypertension. Plan: 1.My recommendation is for the patient to have inpatient rehabilitation. 2.Aggressive management of hypertension. 3.Her atrial fibrillation should be addressed with Eliquis 2.5 mg twice daily. 4.She will have to look out for potential compartment syndrome in the left lower extremity given the swelling and edema from the large hematoma. 5.Aspiration risk is present and she may develop a pneumonia. She needs to be addressed with Speech Therapy to help mitigate that and only given the proper consistency once some modified barium swallo w study is done. 6.Patient will be followed while in hospital. MILDRED/TATA Voice ID: [id number] Report ID: [id number]
[2022-01-18] MEDS: MELATONIN 5 MG TABLET PO PRN (03:53)
[2022-01-18 04:03] LABS: Hematocrit 29.5 % (36.0-45.0); MCV 108.1 fL (80-100); MPV 7.2 fL (7.6-11.3); RBC Red Blood Cell Count 2.73 M/uL (3.86-4.86)
[2022-01-18 04:06] LABS: Potassium 4.1 mmol/L (3.5-5.1)
[2022-01-18] MEDS: LEVOTHYROXINE SOD 0.1 MG TAB PO SCH (05:55)
[2022-01-18] MEDS: SPIRONOLACTONE 25 MG TABLET PO SCH (09:55)
[2022-01-18] MEDS: FUROSEMIDE 40 MG TABLET PO SCH (09:55)
[2022-01-18] MEDS: FOLIC ACID 1 MG TABLET PO SCH (09:55)
[2022-01-18] MEDS: ASPIRIN EC 81 MG TAB PO SCH (09:55)
--- NOTE | 2022-01-18 13:52 | ECHO ---
HEIGHT: 5 ft 3 in WEIGHT: 160 lb 0 oz DATE OF STUDY: 01/18/[address]: Tammi Perez 2-DIMENSIONAL: YES M.MODE: YES DOPPLER: YES COLOR FLOW: YES TDS: NO PORTABLE: YES DEFINITY: NO BUBBLE STUDY: NO DIAGNOSIS: STROKE CARDIAC HISTORY: CATHERIZATION: SURGERY: PROSTHETIC VALVE: PACEMAKER: MEASUREMENTS (cm) DIASTOLIC (NORMALS) SYSTOLIC (NORMALS) IVSd 0.9 (0.6-1.2) LA Diam 4.6 (1.9-4.0) LVEF 53% LVIDd 4.0 (3.5-5.7) LVIDs 2.9 (2.0-3.5) %FS 27% LVPWd 1.0 (0.6-1.2) Ao Diam 2.5 (2.0-3.7) 2 DIMENSIONAL ASSESSMENT: RIGHT ATRIUM: ENLARGED LEFT ATRIUM: ENLARGED RIGHT VENTRICLE: NORMAL LEFT VENTRICLE: NORMAL TRICUSPID VALVE: MITRAL VALVE: PULMONIC VALVE: AORTIC VALVE: NORMAL PERICARDIAL EFFUSION: NONE AORTIC ROOT: NORMAL LEFT VENTRICULAR WALL MOTION: NORMAL DOPPLER/COLOR FLOW: SEE BELOW. COMMENTS: 1. NORMAL LEFT VENTRICULAR EJECTION FRACTION 55-60%. 2. NORMAL WALL MOTION. 3. MODERATE TO SEVERE TRICUSPID REGURGITATION. 4. MILD MITRAL REGURGITATION. 5. BIATRIAL ENLARGEMENT. 6. DIASTOLIC DYSFUNCTION. 7. PULMONARY HYPERTENSION WITH RIGHT VENTRICULAR SYSTOLIC PRESSURE OF 50-55 mmHg. TECHNOLOGIST: Sandi CRUZ
--- NOTE | 2022-01-18 16:53 | P.PN ---
Subjective Date of Service: 01/18/22 Primary Care Provider: Roldan Valencia Chief Complaint: CVA Patient is awake and alert. She denies any complaint. Speech is still slurred. She has not been out of bed yet. Physical Examination - Vital Signs Temperature: 98.1 F Blood Pressure: 127/51 Pulse: 72 Respirations: 18 Pulse Ox (%): 100 Assessment And Plan - Plan Physical exam GEN: Alert, oriented CV: Normal rate, irregular rhythm, +edema of LLE, Pulm: Nonlabored respirations, diminished at bases bilaterally ABD: Soft, nontender, nondistended MSK: L knee swollen, left thigh with large contusion, swelling is improving. Integumentary: large contusion of LLE, laceration before left knee sutured Neuro: slurered speech, left-sided weakness. Problem List Acute CVA - right insular cortex, right centrum smeiovale white matter Atrial fibrillation, paroxysmal Congestive heart failure, diastolic, chronic Chronic hypothyroidism Anemia of chronic disease, CKD CKD 3b Patient with left-sided weakness mild slurring of her speech, numbness/decreased sensation Seen by neurology. Neurology input appreciated. Continue aspirin, statin, folic acid MRI: Confirms : Acute, nonhemorrhagic CVA is seen in the right insular cortex as well as the right centrum semiovale white matter. Passed swallow study. Seen by speech and patient prescribed minced diet. Continue PT. Echocardiogram reviewed and reported severe transcript regurgitation and pulm h ypertension. Continue Eliquis for A. fib. Monitor hemoglobin to follow anemia. Code: full Dispo: [facility] pending insurance authorization. Time Spent Managing Pts Care (In Minutes): 38
[2022-01-18] MEDS: PRAMIPEXOLE 0.25 MG TAB PO SCH (21:31)
[2022-01-18] MEDS: ATORVASTATIN 20 MG TAB PO SCH (21:31)
[2022-01-18] MEDS: APIXABAN 2.5 MG TABLET PO SCH (21:31)
[2022-01-19 03:48] LABS: Absolute Lymphocytes (CBC) 0.9 K/uL (0.7-4.9); Lymphocytes % 13.7 % (15.3-44.8); MPV 7.2 fL (7.6-11.3); RBC Red Blood Cell Count 2.68 M/uL (3.86-4.86)
[2022-01-19 03:49] LABS: MCV 108.1 fL (80-100)
[2022-01-19 03:53] LABS: Potassium 4.1 mmol/L (3.5-5.1)
[2022-01-19] MEDS: LEVOTHYROXINE SOD 0.1 MG TAB PO SCH (06:03)
[2022-01-19 07:45] LABS: Magnesium 2.3 mg/dL (1.8-2.4)
[2022-01-19] MEDS: FOLIC ACID 1 MG TABLET PO SCH (08:36)
[2022-01-19] MEDS: FUROSEMIDE 40 MG TABLET PO SCH (08:37)
[2022-01-19] MEDS: SPIRONOLACTONE 25 MG TABLET PO SCH (08:37)
[2022-01-19] MEDS: APIXABAN 2.5 MG TABLET PO SCH ×2 (08:37→21:04)
[2022-01-19] MEDS: allopurinoL 100 MG TAB PO SCH (08:37)
[2022-01-19] MEDS: ASPIRIN EC 81 MG TAB PO SCH (08:37)
[2022-01-19] MEDS: MONTELUKAST 10 MG TAB PO SCH (08:38)
[2022-01-19] MEDS ORDERED: ALBUTEROL 2.5 MG/3 ML NEB SOL NEB PRN (14:00)
--- NOTE | 2022-01-19 15:28 | P.PN ---
Subjective Date of Service: 01/19/22 Primary Care Provider: Roldan Valencia Chief Complaint: CVA Patient has no new complaint. Speech is still slurred. No significant improvement in left-sided weakness. Physical Examination - Vital Signs Temperature: 98.7 F Blood Pressure: 130/61 Pulse: 79 Respirations: 18 Pulse Ox (%): 98 Assessment And Plan - Plan Physical exam GEN: Alert, oriented CV: Normal rate, irregular rhythm, +edema of LLE, Pulm: Nonlabored respirations, diminished at bases bilaterally ABD: Soft, nontender, nondistended MSK: left thigh with large contusion, swelling is improving. Integumentary: Sutured laceration below the left knee. Neuro: slurred speech, left-sided weakness. Problem List Acute CVA - right insular cortex, right centrum smeiovale white matter Atrial fibrillation, paroxysmal Congestive heart failure, diastolic, chronic Chronic hypothyroidism Anemia of chronic disease, CKD CKD 3b Plan: Seen by neurology. Neurology input appreciated. Continue aspirin, statin, folic acid MRI: Confirms : Acute, nonhemorrhagic CVA is seen in the right insular cortex as well as the right centrum semiovale white matter. She passed swallow study. Seen by speech and patient prescribed minced/pureed diet. Continue PT. Echocardiogram reviewed and reported severe tricuspid regurgitation and pulm hypertension. Continue Eliquis for A. fib. Monitor hemoglobin to follow anemia. Code: full Dispo: [facility] [place] pending insurance authorization. Time Spent Managing Pts Care (In Minutes): 29
[2022-01-19] MEDS: ATORVASTATIN 20 MG TAB PO SCH (21:04)
[2022-01-19] MEDS: PRAMIPEXOLE 0.25 MG TAB PO SCH (21:04)
[2022-01-20] MEDS ORDERED: HYDROCODONE/APAP 5/325 MG TAB PO ONE (05:26)
[2022-01-20] MEDS: LEVOTHYROXINE SOD 0.1 MG TAB PO SCH (05:54)
[2022-01-20] MEDS: FOLIC ACID 1 MG TABLET PO SCH (08:41)
[2022-01-20] MEDS: FUROSEMIDE 40 MG TABLET PO SCH (08:41)
[2022-01-20] MEDS: SPIRONOLACTONE 25 MG TABLET PO SCH (08:41)
[2022-01-20] MEDS: MONTELUKAST 10 MG TAB PO SCH (08:41)
[2022-01-20] MEDS: ASPIRIN EC 81 MG TAB PO SCH (08:41)
[2022-01-20] MEDS: APIXABAN 2.5 MG TABLET PO SCH ×2 (08:41→21:58)
[2022-01-20] MEDS: allopurinoL 100 MG TAB PO SCH (08:41)
[2022-01-20] MEDS: ENSURE ENLIVE 237 ML CAN PO SCH ×2 (11:23→16:20)
--- NOTE | 2022-01-20 14:55 | P.PN ---
Subjective Date of Service: 01/20/22 Primary Care Provider: Roldan Valencia Chief Complaint: CVA Patient has no new complaint. Speech is still slurred. No change in neurologic deficit. Physical Examination - Vital Signs Temperature: 98.5 F Blood Pressure: 152/67 Pulse: 91 Respirations: 16 Pulse Ox (%): 98 Assessment And Plan - Plan Physical exam GEN: Alert, oriented CV: Normal rate, irregular rhythm, +edema of LLE, Pulm: Nonlabored respirations, diminished at bases bilaterally ABD: Soft, nontender, nondistended MSK: left thigh with large contusion, swelling is improving. Integumentary: Sutured laceration below the left knee. Neuro: slurred speech, left-sided weakness. Problem List Acute CVA - right insular cortex, right centrum smeiovale white matter Atrial fibrillation, paroxysmal Congestive heart failure, diastolic, chronic Chronic hypothyroidism Anemia of chronic disease, CKD CKD 3b Plan: Neurology is following Continue aspirin, statin, folic acid MRI: Confirms : Acute, nonhemorrhagic CVA is seen in the right insular cortex as well as the right centrum semiovale white matter. She passed swallow study. Seen by speech and patient prescribed minced/pureed diet. Continue PT. Echocardiogram reviewed and reported severe tricuspid regurgitation and pulm hypertension. Continue Eliquis for A. fib. Hemoglobin has been stable Code: full Dispo: Patient accepted to [facility] [place]. Possible discharge in a.m. Time Spent Managing Pts Care (In Minutes): 27
[2022-01-20] MEDS ORDERED: TIZANIDINE 4 MG TABLET PO PRN (20:16)
[2022-01-20] MEDS: MELATONIN 5 MG TABLET PO PRN (21:58)
[2022-01-20] MEDS: ATORVASTATIN 20 MG TAB PO SCH (21:58)
[2022-01-20] MEDS: PRAMIPEXOLE 0.25 MG TAB PO SCH (21:58)
[2022-01-21] MEDS ORDERED: ACETAMINOPHEN 325 MG TABLET PO PRN (04:00)
[2022-01-21] MEDS: LEVOTHYROXINE SOD 0.1 MG TAB PO SCH (06:00)
[2022-01-21 08:04] VITALS: BMI 28.5
[2022-01-21 09:47] VITALS: O2SAT 98
[2022-01-21] MEDS: FUROSEMIDE 40 MG TABLET PO SCH (10:31)
[2022-01-21] MEDS: allopurinoL 100 MG TAB PO SCH (10:31)
[2022-01-21] MEDS: APIXABAN 2.5 MG TABLET PO SCH (10:31)
[2022-01-21] MEDS: MONTELUKAST 10 MG TAB PO SCH (10:31)
[2022-01-21] MEDS: FOLIC ACID 1 MG TABLET PO SCH (10:31)
[2022-01-21] MEDS: ASPIRIN EC 81 MG TAB PO SCH (10:31)
[2022-01-21] MEDS: SPIRONOLACTONE 25 MG TABLET PO SCH (10:31)
[2022-01-21] MEDS: ENSURE ENLIVE 237 ML CAN PO SCH (10:32)
[2022-01-21 11:59] VITALS: BP 116/57; TEMP 97.8
--- NOTE | 2022-01-21 12:27 | P.DS ---
Admission Date: 01/16/22 Discharge Date: 01/21/22 Primary Care Provider: Roldan Valencia Disposition: TRANSFR TO OTHER-PSY/CD/REHAB Discharge Condition: FAIR Reason for Admission: CVA Brief History of Present Illness: Patient is an 89-year-old female with past medical history of CKD3, anemia, atrial fibrillation, and congestive heart failure who presented to the ED with left-sided facial droop, dysphagia, slurred speech, and left-sided weakness that began about 40 minutes [employer] . Her initial NIH score was 13. Head CT negative for acute bleed. CT head angio negative. CT neck angio showed moderate calcified pl aque in the right carotid bulb. Patient takes Eliquis for her A. fib but after having a fall and large amount of ecchymosis/bleeding on her leg 2 days ago, she stopped the Eliquis yesterday. Labs significant for BUN 38, creatinine 1.48, and hemoglobin 9.6. Chest x-ray showed mild bilateral interstitial lung opacities that may represent interstitial pulmonary edema or pneumonitis. She was in the window for TNKase, however given her recent falls/inurjuries/bleeding, the decision was made to hold off after discussion with Dr. Cox and family. Most recent NIH was 6 in the ED. She was admi tted for further management. Hospital Course: Diagnosis Acute CVA - right insular cortex, right centrum smeiovale white matter Atrial fibrillation, paroxysmal Congestive heart failure, diastolic, chronic Chronic hypothyroidism Anemia of chronic disease, CKD CKD 3b Plan: Patient admitted to the medical floor and started on aspirin, statin and folic acid. He is on Eliquis which was continued during the hospital stay Seen by neurology who assisted with management MRI: Confirmed : Acute, nonhemorrhagic CVA is seen in the right insular cortex as well as the right centrum semiovale white matter. She passed swallow study. Seen by speech and patient prescribed minced/pureed diet. Seen by PT and OT. Echocardiogram reviewed and reported severe tricuspid regurgitation and pulm hypertension. Continued Eliquis for A. fib. Hemoglobin was stable on Eliquis. She has hematoma of the left thigh from a fall prior to admission which was stable. Patient accepted to [facility] [place]. Vitals are stable for discharge. Vital Signs/Physical Exam: Temp Pulse Resp BP Pulse Ox 97.8 F 72 16 116/57 L 90 L 01/21/22 11:58 01/21/22 11:58 01/21/22 11:58 01/21/22 11:58 01/21/22 11:58 General: Alert, In no apparent distress HEENT: Mucous membr. moist/pink Neck: JVD not distended Respiratory: Clear to auscultation bilaterally, Normal air movement Cardiovascular: Normal S1 S2, Irregular heart rate/rhythm Gastrointestinal: Soft and benign, Non-distended Integumentary: Other (Left thigh hematoma, sutured laceration below the left knee) Neurological: Other (Left-sided weakness, left facial droop.) Laboratory Data at Discharge: WBC 6.20 K/uL (4.3-10.9) 01/19/22 03:02 Hgb 9.7 g/dL (12.0-15.0) L 01/19/22 03:02 Hct 29.0 % (36.0-45.0) L 01/19/22 03:02 Plt Count 139 K/uL (152-406) L 01/19/22 03:02 PT 12.4 SECONDS (9.5-12.5) 01/16/22 16:26 INR 1.13 01/16/22 16:26 APTT 23.9 SECONDS (24.3-36.9) L 01/16/22 16:26 Sodium 138 mmol/L (136-145) 01/19/22 03:02 Potassium 4.1 mmol/L (3.5-5.1) 01/19/22 03:02 BUN 38 mg/dL (7-18) H 01/19/22 03:02 Creatinine 1.29 mg/dL (0.55-1.3) 01/19/22 03:02 Glucose 112 mg/dL (74-106) H 01/19/22 03:02 Phosphorus 3.7 mg/dL (2.5-4.9) 01/17/22 02:04 Magnesium 2.2 mg/dL (1.8-2.4) 01/20/22 05:13 Total Bilirubin 1.3 mg/dL (0.2-1.0) H 01/17/22 02:04 AST 18 U/L (15-37) 01/17/22 02:04 ALT 16 U/L (12-78) 01/17/22 02:04 Alkaline Phosphatase 47 U/L (45-117) 01/17/22 02:04 Triglycerides 54 mg/dL (<150) 01/17/22 02:04 Cholesterol 89 mg/dL (<200) 01/17/22 02:04 HDL Cholesterol 59 mg/dL (40-60) 01/17/22 02:04 Cholesterol/HDL Ratio 1.51 01/17/22 02:04 Home Medications: Allopurinol 1 tab PO DAILY 01/16/22 Apixaban [Eliquis *] 2.5 mg PO BID 01/16/22 Furosemide [Lasix] 40 mg PO DAILY 01/16/22 Levothyroxine [Synthroid*] 100 mcg PO [id number] 01/16/22 Montelukast Sodium [Singulair] 10 mg PO DAILY 01/16/22 Pramipexole Di-HCl [Pramipexole Dihydrochloride] 0.5 mg PO BEDTIME 01/16/22 Simvastatin 40 mg PO BEDTIME 01/16/22 Spironolactone [Aldactone*] 25 mg PO DAILY 01/16/22 Tizanidine HCl [Zanaflex] 2 - 4 mg PO BEDTIME PRN 01/16/22 Aspirin [Aspirin EC] 81 mg PO DAILY #30 tab 01/21/22 Ensure Enlive 237 ml PO TIDWM can 01/21/22 Folic Acid 1 mg PO DAILY #30 tab 01/21/22 New Medications: Aspirin [Aspirin EC] 81 mg PO DAILY #30 tab Folic Acid 1 mg PO DAILY #30 tab Diet: AHA Activity: Fall precautions Followup: MARVA DURHAM [Primary Care Provider] - 1-2 Weeks Time spent managing pt's care (in minutes): 36
== END 2022-01-21 14:21 | DRG 65 ==
LOC: ER 16:00 → ERHOLD 19:57 → 4TH 01-17 21:21
PROVIDERS: ADMIT Hospitalist; ATTEND Internal Medicine
DX: I63.9 Cerebral infarction, unspecified (principal); G81.94 Hemiplegia, unspecified affecting left nondominant side; I50.32 Chronic diastolic (congestive) heart failure; I13.0 Hypertensive heart and chronic kidney disease with heart failure and stage 1 through stage 4 chronic kidney disease, or unspecified chronic kidney disease; N18.32 Chronic kidney disease, stage 3b; D63.1 Anemia in chronic kidney disease; I48.0 Paroxysmal atrial fibrillation; I27.20 Pulmonary hypertension, unspecified; E78.5 Hyperlipidemia, unspecified; I07.1 Rheumatic tricuspid insufficiency; E03.9 Hypothyroidism, unspecified; S70.12XA Contusion of left thigh, initial encounter; S81.012A Laceration without foreign body, left knee, initial encounter; R29.810 Facial weakness; R47.02 Dysphasia; R58 Hemorrhage, not elsewhere classified; R47.81 Slurred speech; R29.713 NIHSS score 13; Z90.49 Acquired absence of other specified parts of digestive tract; Z79.01 Long term (current) use of anticoagulants; Z79.82 Long term (current) use of aspirin; Z79.890 Hormone replacement therapy; Z79.899 Other long term (current) drug therapy; Z20.822 Contact with and (suspected) exposure to COVID-19; W18.30XA Fall on same level, unspecified, initial encounter; Y93.9 Activity, unspecified; Y92.9 Unspecified place or not applicable
CPT/HCPCS: 36415; 70450; 70496; 70498; 70544; 70549; 70553; 71045; 80048; 80053; 80061; 82607; 82746; 82947; 83036; 83540; 83735; 84100; 84436; 84443; 84466; 84484; 85025; 85027; 85610; 85652; 85730; 87811; 92507; 92523; 92526; 93005; 93306; 94760; 97110; 97112; 97161; 97530; 99251; 99291; 99292; A9577; Q9967